=== PATIENT | male | born 1945 | race Caucasian/White ===

== ENCOUNTER → 2018-03-08 | Outpatient (CLI) | payer MEDICARE ==
[~2018-03-08] VITALS: Ht 172.7 cm; Wt 112.9 kg
[~2018-03-08] MED LIST: REGADENOSON 0.4 MG/5 ML PF SYG IVP SCH
== END | disposition home or self-care (01) ==
LOC: EDUNIT# 08:00 → SHCH 09:12
PROVIDERS: ATTEND Internal Medicine Cardiovascular Disease
DX: I25.10 Atherosclerotic heart disease of native coronary artery without angina pectoris (principal)
CPT/HCPCS: 78452; 93017; 96374; A9500 ×2; J2785

== ENCOUNTER 2018-07-08 09:00 | Inpatient (IN) | payer MEDICARE | END 2018-07-13 12:04 | disposition home or self-care (01) | LOC: DAHIP 09:00 → 2AH 07-10 18:00 → 2CV 12:32 → 2BH 07-09 13:29 | PROC: 02100Z9 Bypass Coronary Artery, One Artery from Left Internal Mammary, Open Approach (ICD-10-PCS; principal; 2018-07-08 10:12) | PROC: 0212093 Bypass Coronary Artery, Three Arteries from Coronary Artery with Autologous Venous Tissue, Open Approach (ICD-10-PCS; 2018-07-08 10:12) | DX: I25.10 Atherosclerotic heart disease of native coronary artery without angina pectoris (principal); Z68.41 Body mass index [BMI] 40.0-44.9, adult; I70.8 Atherosclerosis of other arteries; I25.119 Atherosclerotic heart disease of native coronary artery with unspecified angina pectoris ==

== ENCOUNTER → 2019-07-09 | Outpatient (CLI) | payer MEDICARE ==
[~2019-07-09] MED LIST changes: +AMIO200 PO; +ASPI-555 PO; +ATOR20TA65 PO; +CETI10TA57 PO; +FURO40TA5 PO; +IOHEXOL-350 75 ML VIAL IV ONE; +METO25TA6 PO; -REGADENOSON 0.4 MG/5 ML PF SYG IVP SCH
== END | disposition home or self-care (01) ==
LOC: RAH 09:54
PROVIDERS: ATTEND Internal Medicine Cardiovascular Disease
DX: I51.7 Cardiomegaly (principal); I65.22 Occlusion and stenosis of left carotid artery
CPT/HCPCS: 71275; Q9967

== ENCOUNTER 2019-08-26 08:22 | Day surgery (SDC) | payer MEDICARE ==
[2019-08-21 14:07] LABS: HEMATOCRIT 44.1 % (42-54); LYMPHOCYTES % (AUTO) 26.3 % (21.0-51.0); MEAN CORPUSCULAR HEMOGLOBIN 28.7 pg (27.0-33.0); MEAN CORPUSCULAR HGB CONC 31.5 g/dL (32.0-36.0); MEAN CORPUSCULAR VOLUME 90.9 fL (79-99); MONOCYTES % (AUTO) 7.8 % (3.0-13.0); NEUTROPHILS % (AUTO) 62.4 % (40.0-77.0); PLATELET COUNT (AUTO) 429 K/uL (130-400); RED BLOOD CELL COUNT(AUTO) 4.85 MIL/uL (4.50-6.20); RED CELL DISTRIBUTION WIDTH 13.4 % (11.0-15.5)
[2019-08-21 14:13] LABS: CREATININE 1.1 mg/dL (0.5-1.5); POTASSIUM 5.1 mmol/L (3.5-5.1)
[2019-08-21 14:14] LABS: INR 1.21 (0.85-1.15); PARTIAL THROMBOPLASTIN TIME 27.1 SEC (26.3-35.5); PROTHROMBIN TIME 12.6 SEC (9.6-11.6)
[2019-08-21 14:23] LABS: APPEARANCE,URINE Clear (CLEAR); BILIRUBIN,URINE Negative (NEGATIVE); COLOR,URINE Yellow (YELLOW); GLUCOSE, URINE (UA) Negative (NEGATIVE); KETONES,URINE Negative (NEGATIVE); LEUKOCYTE ESTERASE ,URINE Negative (NEGATIVE); NITRATE,URINE Negative (NEGATIVE); OCCULT BLOOD,URINE Negative (NEGATIVE); PH,URINE 6.5 (5.0-8.0); PROTEIN,URINE Negative (NEGATIVE)
[2019-08-21 15:31] VITALS: BP 110/60
--- NOTE | 2019-08-25 16:05 | NUR ---
lab abnormal wbc reported to deepak valadez, no further orders given
[2019-08-26] VITALS (12 sets, daily range): BP systolic 79–149; BP diastolic 53–73
[~2019-08-26] VITALS: Ht 170.2 cm; Wt 114.4 kg
[~2019-08-26 08:22] MED LIST changes: -AMIO200 PO; +DILT120C12 PO; -FURO40TA5 PO; -IOHEXOL-350 75 ML VIAL IV ONE; +LOSA25TA41 PO; -METO25TA6 PO
--- NOTE | 2019-08-26 08:55 | NUR ---
B/P PT REPORTED B/P TO LEFT ARM ALWAYS LOW AND THAT IS WHY HE IS HAVING CATH DONE. WILL RECHECK ON RT. PT ASYMPTOMATIC
--- NOTE | 2019-08-26 09:00 | NUR ---
PRE OP PT ARRIVED AMBULATORY IN NO DISTRESS FOR HEART CATH AND CAROTID ANGIO. PT CONNECTED TO CONT CARDIOPULM MONITOR. CALL LIGHT WITH IN REACH AND BED AT LOWEST POSITION
[2019-08-26] MEDS ORDERED: SODIUM CHLORIDE 0.9% 1000ML 1,000 ML IV ONE (10:22)
[2019-08-26] MEDS ORDERED: IOHEXOL 350 MG/ML 100ML INFUS..BTL IV ONE (11:21)
[2019-08-26] MEDS ORDERED: BIVALIRUDIN 250 MG/VIAL IV ONE (11:21)
[2019-08-26] MEDS ORDERED: NITROGLYCERIN 2 MG/VIAL VIAL IV ONE (11:21)
[2019-08-26] MEDS ORDERED: LIDOCAINE HCL 2% 20ML ONE ×2 (11:22→12:08)
[2019-08-26] MEDS ORDERED: MIDAZOLAM HCL 1 MG/ML 2ML VIAL ONE (12:00)
[2019-08-26] MEDS ORDERED: FENTANYL CITRATE PF 50 MCG/1 ML 2ML VIAL ONE (12:00)
[2019-08-26] MEDS ORDERED: IOHEXOL-350 75 ML VIAL IV ONE (12:37)
[2019-08-26] MEDS ORDERED: SODIUM CHLORIDE 0.9% 1000ML 1,000 ML IV SCH (13:16)
[2019-08-26] MEDS ORDERED: HYDRALAZINE HCL 20 MG/ML VIAL IV PRN (13:30)
[2019-08-26] MEDS ORDERED: DEXTROSE 50%-WATER 50 ML DISP.SYRIN IV PRN (13:30)
[2019-08-26] MEDS ORDERED: GLUCAGON 1MG KIT 1 MG ML IM PRN (13:30)
[2019-08-26] MEDS ORDERED: ACETAMINOPHEN-CODEINE 300/30MG TAB PO PRN (13:30)
--- NOTE | 2019-08-26 14:35 | NUR ---
MD FOLLOW UP DR FARFAN IN TO SPEAK TO PT AND SON. EXPLAINED PLAN TO THEM AND TOLD THEM TO FOLLOW UP WITH DR ARIZA ON SUNDAY. PT INFORMED TO START IMDUR 1/2 TAB FOR THREE DAYS THEN ONE TAB DAILY.
--- NOTE | 2019-08-26 15:11 | NUR ---
REPORT REPORT RECEIVED FROM CHANDU MARSHALL. PT LYING IN BED. BEDREST COMPLETE. SITE TO RIGHT GROIN SOFT TO TOUCH. NO BLEEDING, OOZING NOTED TO SITE. FAMILY AT BEDSIDE.
--- NOTE | 2019-08-26 16:32 | NUR ---
PRESCRIPTION CALLED IN PRESCRIPTION FOR IMDUR 60MG TAKE 1 PILL DAILY #90 AND NITROSTAT 0.4MG 1 SL EVERY 5 MINUTES X3 NEEDED FOR CP #25 CALLED IN TO [facility] IN [place] WITH PHARMACIST DEANGELO. SON/ PT AWARE.
--- NOTE | 2019-08-26 16:35 | NUR ---
REPORT REPORT GIVEN TO CHANDU HUBBARD. PT OFF BEDREST. SITE TO RIGHT GROIN SOFT TO TOUCH.
[2019-09-11] MEDS ORDERED: DIPH25CA53 PO (13:24)
[2019-09-11] MEDS ORDERED: LOSA25TA41 PO (13:24)
[2019-09-11] MEDS ORDERED: ISOS60TA4 PO (13:24)
== END 2019-08-26 17:40 | disposition home or self-care (01) ==
LOC: DAH 08:22
PROVIDERS: ATTEND Internal Medicine Cardiovascular Disease
DX: I65.23 Occlusion and stenosis of bilateral carotid arteries (principal); I25.10 Atherosclerotic heart disease of native coronary artery without angina pectoris; I10 Essential (primary) hypertension; E78.5 Hyperlipidemia, unspecified; Z79.82 Long term (current) use of aspirin; Z79.899 Other long term (current) drug therapy; Z82.49 Family history of ischemic heart disease and other diseases of the circulatory system; Z72.89 Other problems related to lifestyle; Z87.891 Personal history of nicotine dependence; Z82.5 Family history of asthma and other chronic lower respiratory diseases
CPT/HCPCS: 36222; 36225; 36415; 71045; 80048; 81003; 85025; 85610; 85730; 93005; 93459; A4215; A4216; A4221; A4222; A4223 ×3; A4606; A4663; C1760; C1894 ×3; J1644; J2250; J3010; J3490 ×3; J7030; Q9965 ×3; Q9967 ×2; 36223; 99156; 99157; J0583

== ENCOUNTER 2019-09-15 05:54 | Observation (INO) | payer MEDICARE ==
[2019-09-11 12:52] VITALS: BP 159/72
[2019-09-11 13:00] LABS: BASOPHILS % (AUTO) 1.1 % (0.0-5.0); EOSINOPHILS % (AUTO) 3.5 % (0.0-8.0); HEMATOCRIT 44.6 % (42-54); LYMPHOCYTES % (AUTO) 30.3 % (21.0-51.0); MEAN CORPUSCULAR HEMOGLOBIN 29.1 pg (27.0-33.0); MEAN CORPUSCULAR HGB CONC 31.6 g/dL (32.0-36.0); MEAN CORPUSCULAR VOLUME 92.1 fL (79-99); MONOCYTES % (AUTO) 6.6 % (3.0-13.0); NEUTROPHILS % (AUTO) 58.1 % (40.0-77.0); PLATELET COUNT (AUTO) 329 K/uL (130-400); RED BLOOD CELL COUNT(AUTO) 4.84 MIL/uL (4.50-6.20); RED CELL DISTRIBUTION WIDTH 14.1 % (11.0-15.5); WHITE BLOOD COUNT (AUTO) 11.3 K/uL (4.8-10.8)
[2019-09-11 13:02] LABS: APPEARANCE,URINE Clear (CLEAR); BILIRUBIN,URINE Negative (NEGATIVE); COLOR,URINE Yellow (YELLOW); GLUCOSE, URINE (UA) Negative (NEGATIVE); KETONES,URINE Negative (NEGATIVE); LEUKOCYTE ESTERASE ,URINE Negative (NEGATIVE); NITRATE,URINE Negative (NEGATIVE); OCCULT BLOOD,URINE Negative (NEGATIVE); PH,URINE 6.5 (5.0-8.0); PROTEIN,URINE Negative (NEGATIVE)
[2019-09-11 13:12] LABS: CREATININE 1.1 mg/dL (0.5-1.5); POTASSIUM 5.4 mmol/L (3.5-5.1)
[2019-09-11 13:14] LABS: INR 1.12 (0.85-1.15); PARTIAL THROMBOPLASTIN TIME 27.8 SEC (26.3-35.5)
--- NOTE | 2019-09-12 13:37 | NUR ---
LABS ABNORMAL WBC, K+ LEVEL REPORTED TO JUNIOR ADLER NP, NO FURTHER ORDERS GIVEN, OK TO PROCEED WITH PROCEDURE
[~2019-09-15] VITALS: Ht 172.7 cm; Wt 115.0 kg
[2019-09-15] VITALS (31 sets, daily range): BP systolic 86–174; BP diastolic 41–91
[~2019-09-15 05:54] MED LIST changes: -ASPI-555 PO; +ASPI-556 PO; -CETI10TA57 PO; +DIPH25CA53 PO; +ISOS60TA4 PO
[2019-09-15] MEDS ORDERED: SODIUM CHLORIDE 0.9% 1000ML 1,000 ML IV ONE (06:10)
--- NOTE | 2019-09-15 06:11 | NUR ---
PRE OP PT ARRIVED AMBULATORY IN NO DISTRESS WITH SON AT SIDE. PT MADE COMFORTABLE IN BED, CALL LIGHT WITHIN REACH, BED IN LOWEST POSITION AND PT INSTRUCTED TO CALL FOR ASSISTANCE. FUEL MANAGER CONNECTED Addendum: 09/15/19 at 0721 by JAVI RESENDIZ RN RN PT DOES HAVE BRUISING TO HANDS AND ARMS
[2019-09-15] MEDS ORDERED: LIDOCAINE HCL 2% 20ML ONE (07:12)
[2019-09-15] MEDS ORDERED: NITROGLYCERIN 2 MG/VIAL VIAL IV ONE (07:12)
[2019-09-15] MEDS ORDERED: IOHEXOL-350 50ML VIAL IV ONE (07:12)
[2019-09-15] MEDS ORDERED: HEPARIN SODIUM 1000UNIT/ML 10ML VIAL ONE ×2 (07:12→07:37)
[2019-09-15] MEDS ORDERED: IOHEXOL 350 MG/ML 100ML INFUS..BTL IV ONE (07:12)
--- NOTE | 2019-09-15 07:16 | NUR ---
MANAGEMENT ADVISOR PT TAKEN TO MANAGEMENT ADVISOR VIA BED BY DULCE MARIA SCHOFIELD. PT IN NO DISTRESS
[2019-09-15] MEDS ORDERED: IOHEXOL-350 75 ML VIAL IV ONE (07:49)
--- NOTE | 2019-09-15 08:22 | NUR ---
REPORT RECEIVED REPORT FROM DULCE MARIA SCHOFIELD. PT HAD INTERVENTION DONE PLANNED PT WILL BE ADMITTED FOR OBSERVATION
--- NOTE | 2019-09-15 08:35 | NUR ---
MD DR ARIZA IN TO TALK TO SON. INTERVENTION DONE STENTING X3. MEDS TO CONTINUE AND PT WILL BE ADMITTED FOR OBSERVATION. SON VOICED UNDERSTANDING
[2019-09-15] MEDS ORDERED: CLOPIDOGREL BISULFATE 300 MG TAB ONE (08:41)
[2019-09-15] MEDS ORDERED: TEMAZEPAM 30 MG CAP PO PRN (08:45)
[2019-09-15] MEDS ORDERED: ONDANSETRON HCL 4 MG/2 ML VIAL IVP SCH (08:45)
[2019-09-15] MEDS ORDERED: ONDANSETRON HCL 4 MG/2 ML VIAL IVP PRN (08:45)
[2019-09-15] MEDS ORDERED: ACETAMINOPHEN-CODEINE 300/30MG TAB PO PRN ×2 (08:45)
[2019-09-15] MEDS ORDERED: MORPHINE SULFATE 5 MG/ML VIAL IVP SCH (08:45)
[2019-09-15] MEDS ORDERED: NITROGLYCERIN 50 MG/D5% WATER 1 BOT IV PRN (08:45)
[2019-09-15] MEDS ORDERED: CLOPIDOGREL BISULFATE 75 MG TAB PO SCH (09:00)
[2019-09-15] MEDS ORDERED: ASPIRIN 81 MG EC TAB PO SCH (09:00)
[2019-09-15] MEDS ORDERED: ASPIRIN 81MG TAB.CHEW PO SCH (09:00)
[2019-09-15] MEDS ORDERED: ISOSORBIDE MONO 60 MG TAB.SR PO SCH (09:00)
[2019-09-15] MEDS: PANTOPRAZOLE SODIUM 40 MG TABLET.DR PO SCH (09:35)
[2019-09-15] MEDS ORDERED: DILTIAZEM HCL 180 MG CAP.SR.24H PO SCH (09:37)
[2019-09-15] MEDS ORDERED: LOSARTAN 50 MG TABLET PO SCH (09:38)
--- NOTE | 2019-09-15 10:48 | NUR ---
labs ptt drawn by maxi asher from line to rt groin under sterile technique. line flushed with heparin
[2019-09-15] MEDS ORDERED: ATROPINE SULFATE 0.1 MG/ML 10 ML SYG IVP ONE (11:47)
--- NOTE | 2019-09-15 11:54 | NUR ---
labs received call from Flyr ptt 97.5. will redraw ptt
--- NOTE | 2019-09-15 12:00 | NUR ---
labs ptt redrawn by maxi asher. will wait for results
--- NOTE | 2019-09-15 12:37 | NUR ---
lab ptt 52. will proceed with sheath removal
--- NOTE | 2019-09-15 13:18 | NUR ---
pt status pt in supine position in no distress at this time. will continue to monitor pt.
--- NOTE | 2019-09-15 15:00 | NUR ---
TRANSFER REPORT GIVEN TO RHETT NEWMAN RN. PT IN ROOM 228.
[2019-09-15] MEDS ORDERED: ATORVASTATIN CALCIUM 20 MG TABLET PO SCH (21:00)
[2019-09-15] MEDS ORDERED: DIPHENHYDRAMINE HCL 25 MG CAPSULE PO SCH (21:00)
[2019-09-16 03:54] VITALS: BP 163/79
[2019-09-16 04:24] LABS: HEMATOCRIT 41.2 % (42-54); MEAN CORPUSCULAR HEMOGLOBIN 28.8 pg (27.0-33.0); MEAN CORPUSCULAR HGB CONC 30.3 g/dL (32.0-36.0); MEAN CORPUSCULAR VOLUME 94.9 fL (79-99); PLATELET COUNT (AUTO) 255 K/uL (130-400); RED BLOOD CELL COUNT(AUTO) 4.34 MIL/uL (4.50-6.20); RED CELL DISTRIBUTION WIDTH 14.2 % (11.0-15.5); WHITE BLOOD COUNT (AUTO) 9.8 K/uL (4.8-10.8)
[2019-09-16 04:51] LABS: CREATININE 1.2 mg/dL (0.5-1.5); POTASSIUM 4.6 mmol/L (3.5-5.1)
[2019-09-16] MEDS: PANTOPRAZOLE SODIUM 40 MG TABLET.DR PO SCH (05:59)
[2019-09-16] MEDS ORDERED: CLOP75TA32 PO (07:38)
[2019-09-16 07:40] VITALS: BP 149/72
--- NOTE | 2019-09-16 09:47 | NUR ---
0820 patient signed CONCEPCION Letter, I faxed CONCEPCION Letter to [phone] and placed in chart under consent tab
== END 2019-09-16 10:10 | disposition home or self-care (01) ==
LOC: DAH 05:54 → DAHIP 05:55 → 2DH 15:31
PROVIDERS: ADMIT Internal Medicine Cardiovascular Disease; ATTEND Internal Medicine Cardiovascular Disease
DX: I25.119 Atherosclerotic heart disease of native coronary artery with unspecified angina pectoris (principal); I25.82 Chronic total occlusion of coronary artery; I34.0 Nonrheumatic mitral (valve) insufficiency; E78.5 Hyperlipidemia, unspecified; I10 Essential (primary) hypertension; I70.8 Atherosclerosis of other arteries
CPT/HCPCS: 36415 ×3; 71045; 80048 ×2; 80061; 81003; 85025; 85027; 85347; 85610; 85730 ×3; 93005 ×3; 96374; A4215; A4216; A4221; A4222; A4223 ×3; A4554; A4606; A4615; A4657; A4663; A6260; A6402; C1725 ×2; C1769; C1874 ×2; C1887; C1894; C9600 ×2; C9601; G0378 ×20; J0461; J1644 ×3; J3490 ×2; J7030; Q0163; Q9967 ×2; 93454

== ENCOUNTER → 2020-09-02 | Outpatient (CLI) | payer MEDICARE ==
[~2020-09-02] MED LIST changes: +CLOP75TA32 PO; -ISOS60TA4 PO; +ISOS60TA77 PO
== END | disposition home or self-care (01) ==
LOC: SHCH 14:34
PROVIDERS: ATTEND Internal Medicine Cardiovascular Disease
DX: I47.1 Supraventricular tachycardia (principal)
CPT/HCPCS: 93306; 93356

== ENCOUNTER → 2021-12-21 | Outpatient (CLI) | payer MEDICARE ==
[2021-12-21 12:53] LABS: CREATININE 1.2 mg/dL (0.5-1.5); POTASSIUM 4.9 mmol/L (3.5-5.1)
== END | disposition home or self-care (01) ==
LOC: LAB 10:21
PROVIDERS: ATTEND Internal Medicine Cardiovascular Disease
DX: E78.5 Hyperlipidemia, unspecified (principal); I10 Essential (primary) hypertension
CPT/HCPCS: 36415; 80048; 80061